=== PATIENT | male | born 1980 | race Caucasian/White ===

== ENCOUNTER 2020-06-14 07:57 | Outpatient (REF) | payer BC, SELFPAY | END 2020-06-14 07:58 | disposition home or self-care (01) | LOC: HO.BBR 07:57 | PROVIDERS: PCP Internal Medicine; Visit Provider Internal Medicine Medical Oncology | DX: Z13.89 Encounter for screening for other disorder (principal) ==

== ENCOUNTER 2020-09-12 07:58 | Outpatient (REF) | payer OTHER, SELFPAY | END 2020-09-12 07:59 | disposition home or self-care (01) | LOC: HO.BBR 07:58 | PROVIDERS: Visit Provider Internal Medicine Medical Oncology | DX: Z13.89 Encounter for screening for other disorder (principal) ==

== ENCOUNTER 2020-12-07 08:03 | Outpatient (REF) | payer OTHER, SELFPAY | END 2020-12-07 08:04 | disposition home or self-care (01) | LOC: HO.BBR 08:03 | PROVIDERS: PCP Internal Medicine; Visit Provider Internal Medicine Medical Oncology | DX: Z13.89 Encounter for screening for other disorder (principal) ==

== ENCOUNTER 2021-03-09 08:06 | Outpatient (REF) | payer OTHER, SELFPAY | END 2021-03-09 08:07 | disposition home or self-care (01) | LOC: HO.BBR 08:06 | PROVIDERS: PCP Internal Medicine; Visit Provider Internal Medicine Medical Oncology | DX: Z13.89 Encounter for screening for other disorder (principal) ==

== ENCOUNTER 2021-06-20 08:08 | Outpatient (REF) | payer OTHER, SELFPAY | END 2021-06-20 08:09 | disposition home or self-care (01) | LOC: HO.BBR 08:08 | PROVIDERS: Visit Provider Internal Medicine Medical Oncology | DX: Z13.89 Encounter for screening for other disorder (principal) ==

== ENCOUNTER 2021-09-18 08:05 | Outpatient (REF) | payer OTHER, SELFPAY | END 2021-09-18 08:06 | disposition home or self-care (01) | LOC: HO.BBR 08:05 | PROVIDERS: Visit Provider Internal Medicine Medical Oncology | DX: Z13.89 Encounter for screening for other disorder (principal) ==

== ENCOUNTER 2021-12-19 08:00 | Outpatient (REF) | payer OTHER, SELFPAY | END 2021-12-19 08:01 | disposition home or self-care (01) | LOC: HO.BBR 08:00 | PROVIDERS: Visit Provider Internal Medicine Medical Oncology | DX: Z13.89 Encounter for screening for other disorder (principal) ==

== ENCOUNTER 2022-04-02 08:07 | Outpatient (REF) | payer OTHER, SELFPAY | END 2022-04-02 08:08 | disposition home or self-care (01) | LOC: HO.BBR 08:07 | PROVIDERS: Visit Provider Internal Medicine Medical Oncology | DX: Z13.89 Encounter for screening for other disorder (principal) ==

== ENCOUNTER 2022-07-08 08:08 | Outpatient (REF) | payer OTHER, SELFPAY | END 2022-07-08 08:09 | disposition home or self-care (01) | LOC: HO.BBR 08:08 | PROVIDERS: PCP Internal Medicine; Visit Provider Internal Medicine Medical Oncology | DX: Z13.89 Encounter for screening for other disorder (principal) ==

== ENCOUNTER 2022-10-08 08:07 | Outpatient (REF) | payer OTHER, SELFPAY | END 2022-10-08 08:08 | disposition home or self-care (01) | LOC: HO.BBR 08:07 | PROVIDERS: Visit Provider Internal Medicine Medical Oncology | DX: Z13.89 Encounter for screening for other disorder (principal) ==

== ENCOUNTER 2023-01-14 08:01 | Outpatient (REF) | payer OTHER, SELFPAY | END 2023-01-14 08:02 | disposition home or self-care (01) | LOC: HO.BBR 08:01 | PROVIDERS: Visit Provider Internal Medicine Medical Oncology | DX: Z13.89 Encounter for screening for other disorder (principal) ==

== ENCOUNTER 2023-04-17 08:02 | Outpatient (REF) | payer OTHER, SELFPAY | END 2023-04-17 08:03 | disposition home or self-care (01) | LOC: HO.BBR 08:02 | PROVIDERS: PCP Internal Medicine; Visit Provider Internal Medicine Medical Oncology | DX: Z13.89 Encounter for screening for other disorder (principal) ==

== ENCOUNTER 2023-07-17 08:12 | Outpatient (REF) | payer OTHER, SELFPAY | END 2023-07-17 08:13 | disposition home or self-care (01) | LOC: HO.BBR 08:12 | PROVIDERS: PCP Internal Medicine; Visit Provider Internal Medicine Medical Oncology | DX: Z13.89 Encounter for screening for other disorder (principal) ==

== ENCOUNTER 2023-10-30 08:15 | Outpatient (REF) | payer OTHER, SELFPAY | END 2023-10-30 08:16 | disposition home or self-care (01) | LOC: HO.BBR 08:15 | PROVIDERS: PCP Internal Medicine; Visit Provider Internal Medicine Medical Oncology | DX: Z13.89 Encounter for screening for other disorder (principal) ==

== ENCOUNTER 2024-01-27 08:10 | Outpatient (REF) | payer OTHER, SELFPAY | END 2024-01-27 08:11 | disposition home or self-care (01) | LOC: HO.BBR 08:10 | PROVIDERS: PCP Internal Medicine; Visit Provider Internal Medicine Medical Oncology | DX: Z13.89 Encounter for screening for other disorder (principal) ==

== ENCOUNTER 2024-05-03 08:06 | Outpatient (REF) | payer OTHER, SELFPAY | END 2024-05-03 08:07 | disposition home or self-care (01) | LOC: HO.BBR 08:06 | PROVIDERS: PCP Internal Medicine; Visit Provider Internal Medicine Medical Oncology | DX: Z13.89 Encounter for screening for other disorder (principal) ==

== ENCOUNTER 2024-08-03 08:06 | Outpatient (REF) | payer OTHER, SELFPAY | END 2024-08-03 08:07 | disposition home or self-care (01) | LOC: HO.BBR 08:06 | PROVIDERS: PCP Internal Medicine; Visit Provider Internal Medicine Medical Oncology | DX: Z13.89 Encounter for screening for other disorder (principal) ==

== ENCOUNTER 2024-11-02 08:03 | Outpatient (REF) | payer OTHER, SELFPAY | END 2024-11-02 08:04 | disposition home or self-care (01) | LOC: HO.BBR 08:03 | PROVIDERS: PCP Internal Medicine; Visit Provider Internal Medicine Medical Oncology | DX: Z13.89 Encounter for screening for other disorder (principal) ==

== ENCOUNTER 2025-02-02 08:15 | Outpatient (REF) | payer OTHER, SELFPAY | END 2025-02-02 08:16 | disposition home or self-care (01) | LOC: HO.BBR 08:15 | PROVIDERS: PCP Internal Medicine; Visit Provider Internal Medicine Medical Oncology | DX: Z13.89 Encounter for screening for other disorder (principal) ==